=== PATIENT | male | born 1960 | race Caucasian/White ===

== ENCOUNTER 2017-11-28 08:33 | Inpatient (IN) ==
[~2017-11-28 08:33] MED LIST: ceFAZolin 1,000 MG in SYRINGE 1 EACH IV ONE
[2017-11-28] MEDS ORDERED: DIAZEPAM 5 MG TABLET PO ONE (09:17)
[2017-11-28] MEDS ORDERED: PANTOPRAZOLE 40 MG TABLET PO ONE ×2 (09:17→09:33)
[2017-11-28] MEDS ORDERED: ceFAZolin 1,000 MG VIAL ONE (09:32)
[2017-11-28] MEDS ORDERED: DIAZEPAM 5 MG TABLET ONE (09:33)
[2017-11-28] MEDS: LACTATED RINGERS 1,000 ML IV SCH ×4 (09:50→23:32)
[2017-11-28] MEDS ORDERED: LIDOCAINE 1%/EPI INJ 20 ML VIAL ONE (10:49)
[2017-11-28] MEDS ORDERED: BUPIVACAINE 0.25% 50 ML VIAL ONE (10:49)
[2017-11-28] MEDS ORDERED: TISSUE ADHESIVE 1 EACH APPLICATOR TOP ONE (10:49)
[2017-11-28] MEDS ORDERED: LIDOCAINE 2% 20 ML VIAL RESP TX ONE (10:49)
[2017-11-28] MEDS ORDERED: SEVOFLURANE 1 UNIT/15 MINUTE INH ONE (13:57)
[2017-11-28] MEDS ORDERED: PROPOFOL 200 MG/20 ML VIAL IV ONE (13:57)
[2017-11-28] MEDS ORDERED: MIDAZOLAM 2 MG/2 ML VIAL ONE (13:57)
[2017-11-28] MEDS ORDERED: GLYCOPYRROLATE 0.4 MG/2 ML VIAL ONE (13:58)
[2017-11-28] MEDS ORDERED: fentaNYL 100 MCG/2 ML VIAL ONE (13:58)
[2017-11-28] MEDS ORDERED: ROCURONIUM 100 MG/10 ML VIAL IV ONE (13:58)
[2017-11-28] MEDS ORDERED: ESMOLOL 100 MG/10 ML VIAL IV ONE (13:58)
[2017-11-28] MEDS ORDERED: ONDANSETRON 4 MG/2 ML VIAL ONE (13:58)
[2017-11-28] MEDS ORDERED: SUCCINYLCHOLINE 200 MG/10 ML VIAL ONE (13:58)
[2017-11-28] MEDS ORDERED: ONDANSETRON 4 MG/2 ML VIAL IV PRN ×2 (14:12→15:26)
[2017-11-28] MEDS: HYDROmorphone 2 MG/1 ML VIAL IV PRN ×4 (14:15→14:30)
[2017-11-28] MEDS ORDERED: HYDROmorphone 2 MG/1 ML VIAL IV PRN (15:26)
[2017-11-28] MEDS ORDERED: [UNRECOGNIZED DRUG - OTHER] TOP PRN (15:26)
[2017-11-28] MEDS ORDERED: PROMETHAZINE 25 MG/1 ML VIAL IM PRN (15:26)
[2017-11-28] MEDS: KETOROLAC 15 MG/1 ML VIAL IV SCH ×2 (15:42→21:10)
[2017-11-28] MEDS: ACYCLOVIR 800 MG TABLET PO SCH ×3 (15:44→21:10)
[2017-11-28] MEDS: SODIUM CHLORIDE 0.65% NASAL SPRAY 45 ML BOTTLE BOTH NARES SCH ×2 (17:09→21:11)
[2017-11-28] MEDS: DOCUSATE SODIUM 100 MG CAPSULE PO SCH (21:10)
[2017-11-29] MEDS: ACYCLOVIR 800 MG TABLET PO SCH (05:30)
[2017-11-29] MEDS: KETOROLAC 15 MG/1 ML VIAL IV SCH ×4 (05:31→21:42)
[2017-11-29 06:32] LABS: Basophils % 0.5 % (0.0-0.8); Eosinophils # 0.1 10*3/uL (0.0-0.87); Eosinophils % 1.9 % (0.00-10.9); Hematocrit 35.1 VOL% (42.0-52.0); Hemoglobin 11.6 GM/DL (14.0-18.0); Immature Granulocytes % 0.3 %; Immature Granulocytes Absolute 0.02 #; Lymphocytes # 0.9 10*3/uL (1.4-4.0); Lymphocytes % 15.3 % (21.2-54.2); Mean Corpuscular Hemoglobin 30 PG (27-34); Mean Corpuscular Volume 90.7 FL (87-102); Mean Platelet Volume 9.2 FL (9.6-12.0); Monocytes # 0.8 10*3/uL (0.11-0.8); Monocytes % 13.5 % (1.7-12.7); Neutrophils % 68.5 % (38.7-73.9); Platelet Count 284 T/CUMM (130-400); Red Blood Count 3.87 MC/CUMM (3.8-5.5); Red Cell Distribution Width 13.6 % (9.3-17.3); White Blood Count 5.8 T/CUMM (4-12)
[2017-11-29 07:01] LABS: Microcytosis Slight; Platelet Estimate Normal
[2017-11-29 07:02] LABS: Calcium 8.3 MG/DL (8.5-10.1); Osmolality,Calculated 274.5 MOS/KG (273-304)
[2017-11-29] MEDS: LACTATED RINGERS 1,000 ML IV SCH (07:07)
[2017-11-29 07:12] LABS: Prealbumin 16.1 MG/DL (20-40)
[2017-11-29] MEDS: PANTOPRAZOLE 40 MG VIAL IV SCH (09:36)
[2017-11-29] MEDS: FUROSEMIDE 20 MG TABLET PO SCH (09:37)
[2017-11-29] MEDS: amLODIPine 5 MG TABLET PO SCH (09:37)
[2017-11-29] MEDS: ATORVASTATIN 20 MG TABLET PO SCH (09:37)
[2017-11-29] MEDS: ASPIRIN 325 MG TABLET PO SCH (09:37)
[2017-11-29] MEDS: SODIUM CHLORIDE 0.65% NASAL SPRAY 45 ML BOTTLE BOTH NARES SCH ×4 (09:37→21:42)
[2017-11-29] MEDS: DOCUSATE SODIUM 100 MG CAPSULE PO SCH ×2 (09:37→21:42)
[2017-11-29] MEDS ORDERED: HYDROcod/ACETAMIN 7.5-325 MG/15 ML UDCUP PO PRN (14:28)
[2017-11-29] MEDS: ENOXAPARIN 40 MG/0.4 ML SYRINGE SUBCUT SCH (22:04)
[2017-11-30] MEDS: KETOROLAC 15 MG/1 ML VIAL IV SCH ×5 (06:03→21:00)
[2017-11-30] MEDS: ENOXAPARIN 40 MG/0.4 ML SYRINGE SUBCUT SCH (09:22)
[2017-11-30] MEDS: PANTOPRAZOLE 40 MG VIAL IV SCH (09:22)
[2017-11-30] MEDS: SODIUM CHLORIDE 0.65% NASAL SPRAY 45 ML BOTTLE BOTH NARES SCH ×4 (09:23→20:05)
[2017-11-30] MEDS: DOCUSATE SODIUM 100 MG CAPSULE PO SCH ×2 (09:23→20:05)
[2017-11-30] MEDS: FUROSEMIDE 20 MG TABLET PO SCH (09:23)
[2017-11-30] MEDS: ATORVASTATIN 20 MG TABLET PO SCH (09:23)
[2017-11-30] MEDS: amLODIPine 5 MG TABLET PO SCH (09:23)
[2017-11-30] MEDS: ASPIRIN 325 MG TABLET PO SCH (09:23)
[2017-12-01] MEDS: KETOROLAC 15 MG/1 ML VIAL IV SCH ×2 (03:02→10:24)
[2017-12-01 07:45] VITALS: BP 116/68
[2017-12-01] MEDS: DOCUSATE SODIUM 100 MG CAPSULE PO SCH (10:21)
[2017-12-01] MEDS: FUROSEMIDE 20 MG TABLET PO SCH (10:21)
[2017-12-01] MEDS: ASPIRIN 325 MG TABLET PO SCH (10:21)
[2017-12-01] MEDS: SODIUM CHLORIDE 0.65% NASAL SPRAY 45 ML BOTTLE BOTH NARES SCH (10:22)
[2017-12-01] MEDS: ENOXAPARIN 40 MG/0.4 ML SYRINGE SUBCUT SCH (10:22)
[2017-12-01] MEDS: ATORVASTATIN 20 MG TABLET PO SCH (10:22)
[2017-12-01] MEDS: amLODIPine 5 MG TABLET PO SCH (10:22)
[2017-12-01] MEDS: PANTOPRAZOLE 40 MG VIAL IV SCH (10:24)
== END 2017-12-01 13:25 | disposition home health service (06) | DRG 327 ==
LOC: N.OR 08:33 → N.SDSINP 08:38 → N.5E 15:00
PROVIDERS: ADMIT Surgery; ATTEND Surgery